=== PATIENT | male | born 1970 | race Caucasian/White ===

== ENCOUNTER 2018-08-08 14:23 | Emergency (ER) | payer BC ==
[2018-08-08 14:42] VITALS: TEMP 97.5; O2SAT 96
[2018-08-08] MEDS ORDERED: TETANUS,DIPHTHERIA,PERTUSSIS 1 EA SYG IM ONE (14:48)
--- NOTE | 2018-08-08 14:51 | ED.PDOC ---
History of Present Illness - General Chief Complaint: Skin/Abrasion/Tear Stated Complaint: Puncture wound R foot Time Seen by Provider: 08/08/18 14:48 Source: patient, family Exam Limitations: no limitations - History of Present Illness Initial Comments: patient comes in today for puncture wound to the right foot. Patient was out on a deer [employer] and stepped on a hernan post. The metal went through his shoe puncturing several inches of blood was seen on the metal with no breaking of the spike. Patient had considerable bleeding directly afterwards but has since stopped and he's had no fever, chills, nausea or vomiting. He does have a history of asthma but not diabetes. He is not up-to-date on his tetanus shot. Timing/Duration: just prior to arrival Severity: moderate Location: feet Improving Factors: nothing Worsening Factors: nothing Associated Symptoms: denies symptoms Allergies/Adverse Reactions: Allergies Levofloxacin [From Levaquin] Allergy (Verified 08/08/18 14:39) Anaphylaxis Amoxicillin [From Augmentin] Adverse Reaction (Verified 08/08/18 14:39) Diarrhea Clavulanic Acid [From Augmentin] Adverse Reaction (Verified 08/08/18 14:39) Diarrhea Prednisone Adverse Reaction (Verified 08/08/18 14:39) Other Causes facial flushing and itching Home Medications: Ambulatory Orders Albuterol Sulfate [Ventolin Hfa] 1 puff INH Q4H PRN 08/08/18 Cefdinir [Cefdinir] 300 mg PO BID 08/08/18 Review of Systems - Review of Systems Constitutional: States: no symptoms reported EENTM: States: no symptoms reported Respiratory: States: no symptoms reported Cardiology: States: no symptoms reported Family Medical History - Family History Father Family History: No Known Living Status: Still Living Physical Exam - Physical Exam General Appearance: Alert, No apparent distress Cardiovascular/Chest: normal peripheral pulses, regular rate, rhythm, no edema, no murmur Respiratory: chest non-tender, lungs clear, normal breath sounds, no respiratory distress Extremity: other - .5 cm punture wound to his right foot with no erythema, edema , or pus. No bleeding. FROM of his foot and normal sensation Progress - Progress Progress: 08/08/18 14:50 Explained that he is at higher risk for infection secondary to the placement and that it was through his shoe. However, no signs of infection at this time. he should check it daily and return to ER or follow up in clinic for any redness, swelling, fever, or pus. Patient received a tetanus shot and wound cleaned. Departure - Departure Clinical Impression: Puncture Disposition: Discharge to Home or Self Care Condition: Good Departure Forms: ED Discharge - Pt. Copy, Patient Portal Self Enrollment Home Medications: Ambulatory Orders Albuterol Sulfate [Ventolin Hfa] 1 puff INH Q4H PRN 08/08/18 Cefdinir [Cefdinir] 300 mg PO BID 08/08/18 Additional Instructions: check it daily and return to ER or follow up in clinic for any redness, swelling , fever, or pus.
[2018-08-08] MEDS ORDERED: CHLORHEXIDINE GLUCONATE 4 % 15 ML UD TOP ONE (14:59)
[2018-08-08] MEDS ORDERED: NEOMYCIN-BACITRACIN-POLYMYXIN 0.9 GM UD TOP ONE (15:06)
[2018-08-08 15:15] VITALS: BP 128/72
== END 2018-08-08 15:15 | disposition home or self-care (01) ==
LOC: ER 14:23
DX: S91.331A Puncture wound without foreign body, right foot, initial encounter (principal); Z23 Encounter for immunization; Z88.1 Allergy status to other antibiotic agents; Z88.8 Allergy status to other drugs, medicaments and biological substances; W45.8XXA Other foreign body or object entering through skin, initial encounter; Y92.89 Other specified places as the place of occurrence of the external cause